=== PATIENT | male | born 1965 | race Caucasian/White ===

== ENCOUNTER 2017-04-11 11:24 | Emergency (ER) | payer OTHER ==
[2017-04-11 15:11] VITALS: BP 130/83
--- NOTE | 2017-04-11 15:32 | UC ---
Lower Extremity/Ankle HPI - HPI Summary HPI Summary: Right lower lateral foot pain and bruising. This started when he pivoted while playing basketball. No known impact. No fall. - History of Current Complaint Chief Complaint: UCLowerExtremity Stated Complaint: RIGHT FOOT INJURY Time Seen by Provider: 04/11/17 14:56 Hx Obtained From: Patient Onset/Duration: Sudden Onset, Lasting Hours Severity Initially: Moderate Severity Currently: Moderate Pain Intensity: 9 Aggravating Factor(s): Standing, Ambulation Alleviating Factor(s): Rest, Elevation Able to Bear Weight: No - Allergies/Home Medications Allergies/Adverse Reactions: Allergies Allergy/AdvReac Type Severity Reaction Status Date / Time No Known Allergies Allergy Verified 04/11/17 14:58 Home Medications: Home Medications Aspirin EC Low Dose* [Ecotrin EC Low Dose 81 MG*] 81 mg PO DAILY 04/11/17 [ History Confirmed 04/11/17] Bupropion XL* [Wellbutrin XL *] 150 mg PO DAILY 04/11/17 [History Confirmed 06/23] Clopidogrel TAB* [Plavix TAB*] 75 mg PO DAILY 04/11/17 [History Confirmed ] Ibuprofen [Advil] 400 mg PO ONCE PRN 04/11/17 [History Confirmed 04/11/17] Metoprolol Tartrate TAB* [Lopressor TAB*] 12.5 mg PO BID 04/11/17 [History Confirmed 04/11/17] Nitroglycerin TAB 0.4 MG* 0.4 mg SL . NEEDED PRN 04/11/17 [History Confirmed 04/11/17] Ramipril CAP* [Altace CAP*] 2.5 mg PO DAILY 04/11/17 [History Confirmed 04/11/17 ] Simvastatin 20 mg PO DAILY 04/11/17 [History Confirmed 04/11/17] PMH/Surg Hx/FS Hx/Imm Hx Previously Healthy: Yes - Surgical History Surgical History: Yes Surgery Procedure, Year, and Place: [facility] - Family History Known Family History: Positive: Other - no related foot family history. - Social History Alcohol Use: Weekly Substance Use Type: None Smoking Status (MU): Current Every Day Smoker Type: Cigarettes Amount Used/How Often: 1 PPD Length of Time of Smoking/Using Tobacco: 33 YRS Have You Smoked in the Last Year: Yes Review of Systems Musculoskeletal: Arthralgia, Edema All Other Systems Reviewed And Are Negative: Yes Physical Exam Triage Information Reviewed: Yes Appearance: Well-Appearing, No Pain Distress, Well-Nourished Vital Signs: Initial Vital Signs Temp 98.7 F 04/11/17 15:04 Pulse 53 04/11/17 15:04 Resp 20 04/11/17 15:04 BP 130/83 04/11/17 15:04 Pulse Ox 95 04/11/17 15:04 Vital Signs Reviewed: Yes Eyes: Positive: Conjunctiva Clear ENT: Positive: Normal ENT inspection Neck: Positive: Supple, Nontender, No Lymphadenopathy Respiratory: Positive: No accessory muscle use. Negative: Respiratory distress Cardiovascular: Positive: Brisk Capillary Refill Abdomen Description: Negative: Distended, Guarding Musculoskeletal Exam: Other - Right dorsum of the foot bruising and swelling. There is 5th lateral metatarsal tenderness. Neurological: Positive: Alert, Muscle Tone Normal. Negative: Fatigued Psychological: Positive: Age Appropriate Behavior Skin: Negative: rashes Procedures - Splinting Hand-Made Type: orthoglass Splint: posterior walking Pre-Proc Neuro Vasc Exam: normal Post-Proc Neuro Vasc Exam: normal Diagnostics - Radiology No standard instances Xray Interpretation: Positive (See Comments) Radiology Interpretation Completed By: ED Physician - 4th and 5th metatarsal fractures. Lower Extremity Course/Dx - Differential Dx/Diagnosis Provider Diagnoses: 4th and 5th metatarsal fractures. Discharge - Discharge Plan Condition: Good Disposition: HOME Patient Education Materials: Foot Fracture in Adults (ED), Splint Care (ED) Referrals: MARJ Davalos [Primary Care Provider] - Dangelo Vallejo MD [Medical Doctor] -
--- NOTE | 2017-04-11 16:34 | RAD ---
INDICATION: Right lateral foot. Basketball COMPARISON: None. TECHNIQUE: 3 views of the right foot were obtained. FINDINGS: There is a minimally displaced comminuted obliquely oriented fracture involving the diaphysis and distal pole of the right fifth metatarsal. There is a slightly displaced obliquely oriented fracture involving the distal metaphysis of the right fourth metatarsal. Remaining visualized bones are intact and appropriately aligned. IMPRESSION: FRACTURES INVOLVING THE RIGHT FOURTH AND FIFTH METATARSALS DESCRIBED ABOVE.
== END 2017-04-11 16:01 | disposition home or self-care (01) ==
LOC: UCCORT 11:24
DX: S92.341A Displaced fracture of fourth metatarsal bone, right foot, initial encounter for closed fracture (principal); S92.351A Displaced fracture of fifth metatarsal bone, right foot, initial encounter for closed fracture; X50.0XXA Overexertion from strenuous movement or load, initial encounter; X50.3XXA Overexertion from repetitive movements, initial encounter; Y93.67 Activity, basketball; Y92.9 Unspecified place or not applicable; F17.210 Nicotine dependence, cigarettes, uncomplicated
CPT/HCPCS: 99211; G0463